=== PATIENT | male | born 1955 | race African-American/Black ===

== ENCOUNTER 2024-12-01 13:32 | Inpatient (IN) | payer MEDICARE, MEDICAID ==
[~2024-12-01] VITALS: Ht 188 cm; Wt 148.8 kg
[~2024-12-01 13:32] MED LIST: ATOR40TA70 PO; DAPA1TAB3 PO; LEVO175T7 PO; OMEP40CA20 PO
[2024-12-01 13:33] VITALS: O2SAT 98
[2024-12-01] MEDS: AZITHROMYCIN 500MG/250ML 250 ML IV ONE (14:00)
[2024-12-01] MEDS: SODIUM CHLORIDE 0.9% (SEPSIS BOLUS) IV ONE (14:13)
[2024-12-01] MEDS: CEFTRIAXONE 1GM/50ML 50 ML IV ONE (14:31)
[2024-12-01 14:34] LABS: BASOPHILS % 0.5 % (0.0-2.0); EOSINOPHILS % 1.9 % (0.0-5.0); HEMATOCRIT. 35.1 % (42.0-52.0); HEMOGLOBIN. 12.0 g/dL (14.0-18.0); LYMPHOCYTES % 13.3 % (20.0-50.0); MEAN PLATELET VOLUME 9.4 fl (7.4-10.4); MONOCYTES % 7.1 % (2.0-8.0); NEUTROPHILS % 77.2 % (40.0-76.0); PLATELET 164 x1000/uL (130-400); RED BLOOD CELL COUNT 3.84 mill/uL (4.7-6.1); RED CELL DISTRIBUTION WIDTH 14.5 % (11.6-14.6)
[2024-12-01 14:51] LABS: TROPONIN I HIGH SENSITIVITY 23 ng/L (3.0-53)
[2024-12-01 14:54] LABS: INR 1.0
[2024-12-01 15:05] LABS: CREATININE 1.2 mg/dL (0.6-1.3); UREA NITROGEN BLOOD 7 mg/dL (9-23)
[2024-12-01 15:07] LABS: ASPARTATE AMINOTRANSFERASE 39 IU/L (<34); BILIRUBIN DIRECT 0.3 mg/dL (<=3.0); BILIRUBIN TOTAL 0.9 mg/dL (0.1-1.0); PROTEIN TOTAL 6.8 g/dL (6.0-8.3)
[2024-12-01] MEDS ORDERED: ZOLPIDEM TARTRATE 5MG TABLET PO PRN (17:00)
[2024-12-01] MEDS ORDERED: ACETAMINOPHEN 325MG TABLET PO PRN (17:00)
[2024-12-01] MEDS ORDERED: ONDANSETRON HCL 4MG/2ML INJ IV PRN (17:00)
[2024-12-01 18:47] VITALS: BP 114/60; PULSE 99; RESP 20; TEMP 36.7; O2SAT 96
[2024-12-01 20:00] VITALS: BP_SYST 103; BP_SYST 114; BP_DIAS 51; BP_DIAS 60; PULSE 87; PULSE 99; RESP 20; TEMP 36.5; TEMP 36.696; O2SAT 100
[2024-12-01] MEDS: PANTOPRAZOLE 40MG DR TABLET PO SCH (22:37)
[2024-12-01] MEDS: ATORVASTATIN CALCIUM 40MG TABLET PO SCH (22:37)
[2024-12-01] MEDS: ENOXAPARIN 40MG/0.4ML SYR SUBCUT SCH (22:38)
[2024-12-01] MEDS: SODIUM CHLORIDE 0.9% 3ML FLUSH IVF SCH (22:39)
[2024-12-02] VITALS: BP 138/57; PULSE 84; RESP 20; TEMP 36.6; O2SAT 100
[2024-12-02 04:00] VITALS: BP 142/68; PULSE 80; RESP 20; TEMP 36.7; O2SAT 98
[2024-12-02 04:03] LABS: CLARITY URINE CLEAR (CLEAR); COLOR URINE YELLOW (YELLOW); GLUCOSE URINE NEGATIVE (NEGATIVE); KETONES URINE NEGATIVE (NEGATIVE); LEUKOCYTE ESTERASE URINE NEGATIVE (NEGATIVE); NITRITE URINE NEGATIVE (NEGATIVE); OCCULT BLOOD URINE NEGATIVE (NEGATIVE); PH URINE 7.5 (4.5-8.0); PROTEIN URINE NEGATIVE (NEGATIVE); SPECIFIC GRAVITY URINE 1.007 (1.005-1.030); UROBILINOGEN URINE 0.2 E.U./dL (0.2-1.0)
[2024-12-02 08:00] VITALS: BP 175/72; PULSE 89; RESP 20; TEMP 36.3; O2SAT 98
[2024-12-02] MEDS: CLONIDINE 0.1MG TABLET PO PRN (09:54)
[2024-12-02] MEDS: TAMSULOSIN HCL 0.4MG SR CAPSULE PO SCH (09:55)
[2024-12-02] MEDS: LEVOTHYROXINE SODIUM 175MCG TABLET PO SCH (09:55)
[2024-12-02 12:00] VITALS: BP 127/72; PULSE 63; RESP 18; TEMP 36.7; O2SAT 98
[2024-12-02 16:00] VITALS: BP 123/78; PULSE 77; RESP 18; RESP 20; TEMP 36.2; O2SAT 98
[2024-12-02 20:00] VITALS: BP 110/62; PULSE 75; RESP 16; TEMP 36.4; O2SAT 97
[2024-12-03] VITALS (8 sets, daily range): BP systolic 116–153; BP diastolic 56–82; PULSE 70–85; RESP 16–20; TEMP 36.4–37.3; O2SAT 95–100
[2024-12-03 07:35] LABS: CREATININE 1.0 mg/dL (0.6-1.3)
[2024-12-03 07:36] LABS: UREA NITROGEN BLOOD 5 mg/dL (9-23)
[2024-12-03 07:54] LABS: BASOPHILS % 0.6 % (0.0-2.0); EOSINOPHILS % 3.4 % (0.0-5.0); HEMATOCRIT. 37.5 % (42.0-52.0); HEMOGLOBIN. 12.4 g/dL (14.0-18.0); LYMPHOCYTES % 27.7 % (20.0-50.0); MEAN PLATELET VOLUME 10.9 fl (7.4-10.4); MONOCYTES % 7.9 % (2.0-8.0); NEUTROPHILS % 60.4 % (40.0-76.0); PLATELET 151 x1000/uL (130-400); RED BLOOD CELL COUNT 4.08 mill/uL (4.7-6.1); RED CELL DISTRIBUTION WIDTH 14.7 % (11.6-14.6)
[2024-12-03] MEDS: ACETAMINOPHEN 325MG TABLET PO PRN (09:26)
[2024-12-03] MEDS: AMLODIPINE 5MG TABLET PO SCH (09:28)
[2024-12-03] MEDS: LEVOTHYROXINE SODIUM 200MCG TABLET PO NR (12:35)
[2024-12-03] MEDS ORDERED: KEPP500 MT (14:13)
[2024-12-03] MEDS: LEVETIRACETAM 500MG TABLET PO SCH (21:35)
[2024-12-04 04:00] VITALS: BP 144/75; PULSE 74; RESP 21; TEMP 36.3; O2SAT 97
[2024-12-04 06:26] LABS: BASOPHILS % 0.6 % (0.0-2.0); EOSINOPHILS % 2.9 % (0.0-5.0); HEMATOCRIT. 36.3 % (42.0-52.0); HEMOGLOBIN. 12.3 g/dL (14.0-18.0); LYMPHOCYTES % 38.1 % (20.0-50.0); MEAN PLATELET VOLUME 9.7 fl (7.4-10.4); MONOCYTES % 9.1 % (2.0-8.0); NEUTROPHILS % 49.3 % (40.0-76.0); PLATELET 176 x1000/uL (130-400); RED BLOOD CELL COUNT 4.05 mill/uL (4.7-6.1); RED CELL DISTRIBUTION WIDTH 14.6 % (11.6-14.6)
[2024-12-04 07:17] LABS: CREATININE 1.0 mg/dL (0.6-1.3); UREA NITROGEN BLOOD 6 mg/dL (9-23)
[2024-12-04] MEDS: LEVOTHYROXINE SODIUM 200MCG TABLET PO SCH (08:19)
[2024-12-04 08:56] VITALS: BP 153/81; PULSE 74; RESP 18; TEMP 36.6; O2SAT 95
[2024-12-04] MEDS: POTASSIUM CHLORIDE 20MEQ TABLET SR PO SCH (10:09)
[2024-12-04] MEDS: CLONIDINE 0.1MG TABLET PO SCH (11:39)
[2024-12-04 12:00] VITALS: BP 141/72; PULSE 82; RESP 20; TEMP 37.2; O2SAT 98
[2024-12-04] MEDS ORDERED: AMLODIPINE 5MG TABLET PO SCH (21:00)
== END 2024-12-04 12:35 | disposition home or self-care (01) | DRG 74 ==
LOC: ER 13:51 → EDBEDREQ 16:37 → EDBEDREQTM 16:37 → ENRESERV 17:44 → 7WST 18:46
PROVIDERS: ADMIT Internal Medicine; ATTEND Internal Medicine
PROC: 4A00X4Z Measurement of Central Nervous Electrical Activity, External Approach (ICD-10-PCS; principal; 2024-12-02)
DX: G90.89 Other disorders of autonomic nervous system (principal); Z68.41 Body mass index [BMI] 40.0-44.9, adult; G93.40 Encephalopathy, unspecified; I10 Essential (primary) hypertension; E66.01 Morbid (severe) obesity due to excess calories; E11.43 Type 2 diabetes mellitus with diabetic autonomic (poly)neuropathy; E78.5 Hyperlipidemia, unspecified; J44.9 Chronic obstructive pulmonary disease, unspecified; E87.6 Hypokalemia; G47.33 Obstructive sleep apnea (adult) (pediatric); E03.9 Hypothyroidism, unspecified; Z79.899 Other long term (current) drug therapy; Z86.011 Personal history of benign neoplasm of the brain; Z87.891 Personal history of nicotine dependence; Z98.2 Presence of cerebrospinal fluid drainage device
CPT/HCPCS: 36415; 71045; 80048; 80076; 81003; 83605; 83735; 83880; 84145; 84443; 84484; 85025; 93005; 93880; 95816; 97166; 99291; A4606; J0456; J0696; J1650; J7030